=== PATIENT | female | born 1975 | race Hispanic/Latino ===

== ENCOUNTER 2022-05-14 09:58 | Observation (INO) | payer BC ==
[2022-05-13 13:41] VITALS: BP 144/74
[~2022-05-14] VITALS: Ht 160 cm; Wt 116.8 kg
[2022-05-14] VITALS (25 sets, daily range): BP systolic 89–154; BP diastolic 44–85
[~2022-05-14 09:58] MED LIST: HYDR25TA PO; LETR2.5T7 PO; LOSA50TA64 PO; PROG100C11 PO; SERT-439 PO
[2022-05-14] MEDS ORDERED: BUPIVACAINE LIPOSOME/PF 266 MG/20 ML ML IJ SCH (10:00)
[2022-05-14] MEDS ORDERED: METRONIDAZOLE 500MG/100ML BAG 100 ML ONE (11:01)
[2022-05-14] MEDS ORDERED: CEFAZOLIN SODIUM 1 GM VIAL ONE (11:01)
[2022-05-14] MEDS ORDERED: SCOPOLAMINE HYDROBROMIDE 1 EACH ADH..PATCH TD ONE (11:01)
[2022-05-14] MEDS ORDERED: DEXAMETHASONE SOD PHOSPHATE 4 MG/ML 5ML VIAL ONE (11:02)
[2022-05-14] MEDS ORDERED: LACTATED RINGERS 1000ML 1,000 ML IV ONE (11:02)
[2022-05-14] MEDS ORDERED: PHENAZOPYRIDINE HCL 200 MG TABLET ONE (11:02)
[2022-05-14] MEDS ORDERED: SUCCINYLCHOLINE 200MG/10ML SYR ONE (11:55)
[2022-05-14] MEDS ORDERED: LIDOCAINE PF 100MG/5ML (2%) SYRINGE 5ML ONE (11:55)
[2022-05-14] MEDS ORDERED: DEXAMETHASONE SOD PHOSPHATE 10MG/ML 1ML VIAL ONE ×2 (11:55→14:14)
[2022-05-14] MEDS ORDERED: FENTANYL CITRATE PF 50 MCG/1 ML 2ML VIAL ONE (11:56)
[2022-05-14] MEDS ORDERED: ONDANSETRON 4MG INJ ONE (11:56)
[2022-05-14] MEDS ORDERED: NEOSTIGMINE 5MG/5ML SYR IV ONE (11:56)
[2022-05-14] MEDS ORDERED: PROPOFOL 10 MG/ML 20ML VIAL IV ONE (11:56)
[2022-05-14] MEDS ORDERED: MIDAZOLAM HCL 1 MG/ML 2ML VIAL ONE (11:56)
[2022-05-14] MEDS ORDERED: ROCURONIUM 10MG/1ML SYR 10 MG/ML ML ONE (11:56)
[2022-05-14] MEDS ORDERED: GLYCOPYRROLATE 1 MG/5 ML SYRINGE ONE (11:56)
[2022-05-14] MEDS ORDERED: ROCURONIUM BROMIDE 10MG/1ML 5ML VL ONE (12:43)
[2022-05-14] MEDS ORDERED: KETOROLAC 30MG VIAL (30MG/ML) ONE (14:13)
[2022-05-14] MEDS ORDERED: MEPERIDINE-PF 25 MG/ML SYG ONE ×2 (14:31→15:14)
[2022-05-14] MEDS ORDERED: MORPHINE 10MG VIAL IVP PRN (16:30)
[2022-05-14] MEDS ORDERED: ONDANSETRON ODT 4MG TAB PO PRN (16:30)
[2022-05-14] MEDS ORDERED: LORAZEPAM 1 MG TABLET PO PRN (16:30)
[2022-05-14] MEDS ORDERED: LORAZEPAM 2 MG/ML 1 ML VIAL IVP PRN (16:30)
[2022-05-14] MEDS ORDERED: ONDANSETRON 4MG INJ IVP PRN (17:00)
[2022-05-14] MEDS: ACETAMINOPHEN 500 MG TABLET PO SCH (17:28)
[2022-05-14] MEDS ORDERED: PROGESTERONE MICRONIZED PO SCH (21:00)
[2022-05-14] MEDS ORDERED: Letrozole 2.5 MG PO SCH (21:00)
[2022-05-14] MEDS ORDERED: ENOXAPARIN SODIUM 40 MG/0.4 ML SYRINGE SQ ONE (21:00)
[2022-05-14] MEDS: KETOROLAC 15MG/ML VIAL (15MG/ML) IV SCH (22:12)
[2022-05-15] MEDS: ACETAMINOPHEN 500 MG TABLET PO SCH (01:27)
[2022-05-15 04:27] VITALS: BP 115/62
[2022-05-15] MEDS: KETOROLAC 15MG/ML VIAL (15MG/ML) IV SCH (06:09)
[2022-05-15] MEDS ORDERED: HYDROCHLOROTHIAZIDE 25 MG TABLET PO SCH (09:00)
[2022-05-15] MEDS ORDERED: ENOXAPARIN SODIUM 40 MG/0.4 ML SYRINGE SQ SCH (09:00)
[2022-05-15] MEDS ORDERED: LOSARTAN 50 MG TABLET PO SCH (09:00)
[2022-05-15] MEDS ORDERED: SERTRALINE HCL 50 MG TABLET PO SCH (09:00)
== END 2022-05-15 07:05 | disposition home or self-care (01) ==
LOC: DAH 09:58 → WSH 09:59
PROVIDERS: ADMIT Obstetrics & Gynecology; ATTEND Obstetrics & Gynecology
DX: N83.201 Unspecified ovarian cyst, right side (principal); Z20.822 Contact with and (suspected) exposure to COVID-19; N73.6 Female pelvic peritoneal adhesions (postinfective); G47.30 Sleep apnea, unspecified; R10.2 Pelvic and perineal pain; I10 Essential (primary) hypertension; E66.01 Morbid (severe) obesity due to excess calories; K21.9 Gastro-esophageal reflux disease without esophagitis; G47.33 Obstructive sleep apnea (adult) (pediatric); R73.01 Impaired fasting glucose; R53.83 Other fatigue; Z86.16 Personal history of COVID-19; Z79.899 Other long term (current) drug therapy; Z68.42 Body mass index [BMI] 45.0-49.9, adult
CPT/HCPCS: 86850; 86900; 86901; 87426; 36415; 58661; 96374; 96372; 96376; A6260; G0378 ×11; A4663; J7030; A4215 ×3; A4344; J7120 ×2; J3010; J0690 ×2; J0330; J3490 ×4; J1100 ×4; J2710; J2001; J2250; J2704; J2405; J1885 ×3; J1650; J2175 ×2; C9290 ×2; G0168; A4649; A4223; A4222; A4221; A4600